=== PATIENT | female | born 1970 | race Two or more races ===

== ENCOUNTER 2018-02-14 11:10 | Emergency (ER) | payer OTHER ==
[~2018-02-14] VITALS: Ht 167.6 cm; Wt 84.9 kg
--- NOTE | 2018-02-14 11:15 | NUR ---
NOT IN LOBBY
--- NOTE | 2018-02-14 11:40 | NUR ---
PT PRESENTS TO ED WITH N/V X 1 DAY, DIARRHEA X 3 DAYS. PT STATED BS IS ALSO HIGH. NEW SC INSULIN STARTED 3 DAYS AGO. FAMILY AT BEDSIDE TO TRANSLATE. CONNECTED TO BP CUFF AND PULSE OX. VSS. MD TO BEDSIDE FOR ASSESSMENT. AWAITING ORDERS ST THIS TIME.
[2018-02-14] MEDS ORDERED: GLYB2.5T2 PO (11:48)
[2018-02-14] MEDS ORDERED: CHLO50TA PO (11:48)
[2018-02-14] MEDS ORDERED: EMPA25TA PO (11:48)
[2018-02-14] MEDS ORDERED: METF500T17 PO (11:48)
[2018-02-14] MEDS ORDERED: LOSA100T7 PO (11:48)
[2018-02-14] MEDS ORDERED: INSU100I34 SC (11:48)
[2018-02-14] MEDS ORDERED: ASPI-496 PO (11:48)
[2018-02-14] MEDS ORDERED: CARV25TA12 PO (11:48)
[2018-02-14 12:02] LABS: BASOPHILS # (AUTO) 0.05 x10^3/uL (0-0.1); BASOPHILS % (AUTO) 1 % (0-1); EOSINOPHILS # (AUTO) 0.12 x10^3/uL (0-0.4); EOSINOPHILS % (AUTO) 1 % (1-7); LYMPHOCYTES # (AUTO) 1.76 x10^3/uL (1-3.4); LYMPHOCYTES % (AUTO) 18 % (22-44); MD NO; MEAN CORPUSCULAR HEMOGLOBIN 29.5 pg (27.0-34.8); MEAN CORPUSCULAR HGB CONC 33.5 g/dL (32.4-35.8); MEAN CORPUSCULAR VOLUME 87.9 fL (80-100); MEAN PLATELET VOLUME 9.2 fL (7.4-10.4); MONOCYTES # (AUTO) 0.52 x10^3/uL (0.2-0.8); MONOCYTES % (AUTO) 5 % (2-9); NEUTROPHILS # (AUTO) 7.49 x10^3/uL (1.8-6.8); NEUTROPHILS % (AUTO) 76 % (42-75); PLATELET COUNT 261 x10^3/uL (130-400); RED CELL DISTRIBUTION WIDTH 12.5 % (9.6-15.2)
[2018-02-14 12:07] LABS: PH, VENOUS 7.379 pH (7.320-7.420)
[2018-02-14 12:08] LABS: FIO2 ROOM AIR %
[2018-02-14 12:13] LABS: ALANINE AMINOTRANSFERASE 162 U/L (12-78); ALBUMIN 3.9 g/dL (3.4-5.0); ANION GAP 8 mmol/L (5-15); CALCIUM 9.2 mg/dL (8.5-10.1); CHLORIDE 101 mmol/L (98-107); CREATININE 1.15 mg/dL (0.55-1.02)
[2018-02-14 12:18] LABS: ALKALINE PHOSPHATASE 85 U/L (45-117); BILIRUBIN,TOTAL 0.5 mg/dL (0.2-1.0); TOTAL PROTEIN 8.2 g/dL (6.4-8.2)
[2018-02-14 12:27] LABS: ACETONE, SERUM Negative (Negative)
[2018-02-14 12:41] LABS: MICROSCOPIC AUTO
[2018-02-14 12:42] LABS: CULTURE INDICATED? YES
[2018-02-14 12:53] VITALS: BP 122/71
--- NOTE | 2018-02-14 12:53 | NUR ---
PT RESTING IN BED WITH FAMILY AT BEDSIDE. AWATING UC AT THIS TIME.
--- NOTE | 2018-02-14 13:24 | NUR ---
STILL AWAITING STOOL SAMPLE AT THIS TIME. PT EATING IN ROOM. N/V RESOLVED.
--- NOTE | 2018-02-14 13:28 | NUR ---
PT UP TO RESTROOM MULTIPLE TIMES FOR BM. PT REMINDED MULTIPLE TIMES THAT A STOOL SAMPLE IS NEEDED. AWAITING SAMPLE AT THIS TIME.
--- NOTE | 2018-02-14 13:43 | NUR ---
PA AT BEDSIDE FOR UPDATE ON POC AND DC. PA AWARE OF MULTIPLE BM WITH NO SAMPLE OBTAINED. PLAN TO DC.
== END 2018-02-14 13:58 | disposition home or self-care (01) ==
LOC: ED 13:28 → EDBD 13:28 → ED 13:58
DX: I12.9 Hypertensive chronic kidney disease with stage 1 through stage 4 chronic kidney disease, or unspecified chronic kidney disease (principal); N18.9 Chronic kidney disease, unspecified; E11.22 Type 2 diabetes mellitus with diabetic chronic kidney disease; E11.65 Type 2 diabetes mellitus with hyperglycemia; N39.0 Urinary tract infection, site not specified
CPT/HCPCS: 36415; 80053; 81001; 82010; 82803; 82962; 84703; 85025; 87086; 99283